=== PATIENT | male | born 1965 | race Caucasian/White ===

== ENCOUNTER → 2016-04-20 | Outpatient (CLI) | payer OTHER ==
--- NOTE | 2016-04-21 06:21 | PAP/PSG TECHNICIAN REPORT ---
[facility] Towel Cabinet Repairer Polysomnogram Report Study name: None Report date: 04/21/2016 Study date: 04/20/2016 Referring Physician: Ramin Ivey M.D. Name: PELON MEDRANO Rufina Interpreting Physician: Alexi Ivey M.D. Date of : 1965 Towel Cabinet Repairer: GENET Mayo. Sex: Male Age: 51 StudyType: PSG Weight: 251 lbs Height: 51 years, Height 6' 1" Neck Circum:17.25 inches BMI: 33.11 Medications: Patient History 50 yr. old male here for a diagnostic sleep study with [id number]. Patient was diagnosed with CHANG in 2010with an AHI at that time of 6.7. He could not get used to CPAP. Patient had a Inconclusive HST, and is now here for a new baseline. Patient complains of snoring, witnessed apneas, insomnia and hypersomnia. [place] sleepiness scale score is 8/24. Parameters Monitored NPSG: E1-M2, E2-M1, Fp1-M2, Fp2-M1, F3-M2, F4-M2, F4-M1, C3-M2, C4-M2, C4-M1, O1-M2, O2-M2, O2-M1, T3-M2, T4-M1, P3-M2, P4-M1, CHIN1, CHIN2, HR, EKG, Legs, PFLOW, SNOR, FLOW, CFLOW, Tidal Volume, THOR, ABDO, SpO2, PLTH, CPRESS, ETCO2 Wave, ETCO2, pH Sleep Architecture Sleep Stages Time at Lights Off 8:33:20 PM STAGES Time (min.) TST (%) Time at Lights On 5:45:50 AM Wake 76.0 -- Total Recording Time (TRT) 552.50 min. N1 26.0 5 Total Sleep Period (TSP) 501.5 min. N2 290.5 61 Total Sleep Time (TST) 476.5min. N3 53.5 11 Awake Time 76.0 min. REM 106.5 22 Wake after Sleep Onset 30.5 min. Sleep Efficiency (SE) 86 % Sleep Onset Latency (JEN) 45.5 min. Number of Stage 1 Shifts None Awakenings 17 Stage Changes 81 Number of REM periods 6 REM 106.5 22 REM Latency 60.0 min. NREM 370.0 78 Body Position Analysis Supine Right Left Side Prone Vertical Total Sleep Time (min.) 45.4 285.0 191.2 476.20 0.0 0.0 Total Sleep Time (%) 0% 60% 40% 100 0% N/A% Total Sleep Time REM (min.) 0.0 56.5 50.0 None 0.0 0.0 Total Sleep Time NREM (min.) 0.3 228.5 141.2 None 0.0 0.0 Intermittent Wake (min.) 45.1 17.8 13.0 None 0.0 0.0 Total Sleep Period (%) 0% None None None None None Arousals Myoclonus (PLM) * Events Count Index Events Count Index Spontaneous 3 0 Events Awake (PLMW) 109 86.1 Respiratory 0 0.0 Events Asleep w/ Arousal (PLMA) 18 2.3 PLM 18 2 Events Asleep w/o Arousal (PLMS) 162 20.4 Snoring 9 1 Total Asleep 180 22.7 Total 30 4 Total 289 31 Respiratory Analysis * CA OA MA CH H RERA Total Count 0 0 0 0 10 0 10 Index 0.0 0.0 0.0 0 1.3 0 1.3 Mean Duration 0.0 0.0 0.0 0.00 27.7 0.0 27.7 Longest Duration 0.0 0.0 0.0 0.00 0.0 0.0 39.8 Respiratory Event Summary Total Supine ~Supine Right Left Prone REM NREM Apneas Count 0 0 0 0 0 N/A 0 0 Index 0.0 0 0 0.0 0.0 N/A 0 0 Hypopneas (4% Desat) Count 10 0 10 5 5 N/A 3 7 Index 1.3 0.0 1 1.1 1.6 N/A 1.7 1.1 Apneas & All Hypopneas Count 10 0 10 5 5 N/A 3 7 Index 1.3 0 1 1 2 N/A 1.7 1.1 Respiratory Events (Diet Clerk+All Hyp+RERA) Count 10 0 10 5 5 N/A 3 7 Index 1.3 0 1 1.1 1.6 N/A 1.7 1.1 Respiratory Related Arousal Count 0 0 0 0 0 N/A 0 0 Index 0.0 0 0 0 0 N/A 0 0 Snoring Analysis Supine Right Left Prone REM NREM Total Snore duration 11.8 min Snores count 0 568 23 N/A 52 539 591 Snore mean duration 1.2 Sec Snores index 0 120 7 N/A 29.3 87.4 74.4 TST with snoring (%) 2.5% SpO2 Analysis Total REM NREM Awake <50% 0.0 min. 0.0 min. 0.0 min. 0.0 min. 51 - 60% 0.0 min. 0.0 min. 0.0 min. 0.0 min. 61 - 70% 0.0 min. 0.0 min. 0.0 min. 0.0 min. 71 - 80% 0.0 min. 0.0 min. 0.0 min. 0.0 min. 81 - 90% 44.1 min. 10.8 min. 31.7 min. 1.6 min. 91 - 100% 491.0 min. 95.7 min. 329.7 min. 65.6 min. Average 92 92 92 93 Minimum SpO2 84 87 84 84 Desaturation Event Index 2.1 2.8 2.1 0.8 # Desat. Events below 89% 7 2 5 N/A Time(%) with Saturation below 89% 0.6 0.1 0.5 0.0 Time(min.) with Saturation below 89% 3.5 0.8 2.5 0.2 Heart Rate Analysis End Tidal CO2 Analysis Min (bpm) Max (bpm) Average (bpm) TSP (mins) % of TSP Awake 47 127 60 Above 55 mmHg 0.0 0.0 NREM 48 127 56 50-55 mmHg 0.0 0.0 REM 49 93 60 45-50 mmHg 0.2 0.0 Overall 48 127 57 40-45 mmHg 231.7 48.6 35-40 mmHg 242.2 50.8 30-35 mmHg 2.3 0.5 Average ETCO2 0.1 Supplemental O2 Values Minimum O2 level: None Value Start Time End Time Towel Cabinet Repairer Comments Mr. Medrano slept in the right, and left positions. No cardiac arrhythmia. PLMs noted. No bruxism noted. Snoring was noted and scored as a 3 on a scale of 0 through 5. (0=no snoring, 5=snoring loud enough to be heard through a closed door or down the [address]) Mr. Medrano awoke to use the restroom once during the night. Mr. Medrano stated, that was a normal night, I was up a lot, and I did not dream. The final report will be interpreted and signed by a sleep physician. The completed physician report will then be placed in the patient medical record. Therapy (cm H2O) 0 TIB (min.) 552.5 TST (min.) 476.5 Sleep Onset (min.) 45.5 REM Onset From Sleep (min.) 60.0 Sleep Efficiency % 86 Wakefulness (%) 14 Wakefulness (min.) 76.0 NREM 1 (%) 5 NREM 1 (min.) 26.0 NREM 2 (%) 61 NREM 2 (min.) 290.5 NREM 3 (%) 11 NREM 3 (min.) 53.5 REM (%) 22 REM (min.) 106.5 # Arousals 30 Arousal Index 4 # Snore 591 Snore Index 74.4 AHI 1.3 AHI Supine 0 AHI Non-Supine 1 NREM AHI 1.1 REM AHI 1.7 RDI 1.3 # Obstructive Apnea 0 # Central Apnea 0 # Mixed Apnea 0 # Hypopneas 10 RERAs 0 Total Respiratory Events 10 Time Below SpO2 89% (min.) 3.3 Mean NREM SpO2 (%) 92 Mean REM SpO2 (%) 92 Mean Sleep SpO2 (%) 92 Min NREM SpO2 (%) 84 Min REM SpO2 (%) 87 Position Supine (min.) 45.4 Position Non-supine (min.) 476.2 LM Index Sleep 22.7 LM Index NREM 24.6 LM Index REM 15.8 Mean Heart Rate (bpm) 57 Min Heart Rate (bpm) 48
--- NOTE | 2016-04-25 13:53 | POLYSOMNOGRAPH REPORT ---
REFERRING PERSON: Dr. Cheryl Ivey. SEAT TRIMMER: Merline Hill. Mr. Beyer is a 51-year-old male who was diagnosed with obstructive sleep apnea in 2010. His AHI at that time was 6.7. He did not wish to treat his apnea at that time. Recently, he had an inconclusive home sleep test and is now sent to the sleep lab for a new baseline sleep study. He complains of snoring, witnessed apneas, insomnia and hypersomnia. His [place] sleepiness scale score on the evening of this study is 8. BMI is 33.11. Following the technical and digital specifications of the [employer] ([employer]ASM) a standard diagnostic polysomnogram was performed monitoring EEG, EOG, EMG (chin and leg deviations), oxygen saturation, body position, digital video, respiratory effort and airflow. The sleep Stage and event scoring was based on the AASM Manual for the Scoring of Sleep and Associated Events 2007 edition. Apneas are defined as a drop in the peak thermal sensor excursion by >90% of baseline for at least 10 seconds. Hypopneas were scored using the 4% oxygen desaturation rule (4A-[employer]) and a decrease in the nasal pressure excursions by >30% of baseline for at least 10 seconds. Respiratory effort-related arousal (RERA's) is defined as a sequence of breaths lasting at least 10 seconds characterized by increasing respiratory effort or flattening of the nasal pressure waveform leading to an arousal from sleep when the sequence of breaths does not meet criteria for an apnea or hypopnea. Apnea Hypopnea index (AHI) is defined as the number of apneas and hypopneas occurring in an hour of sleep. Respiratory disturbance index (RDI) is defined as the number of apneas, hypopneas, and RERA's occurring in an hour of sleep. Mr. Beyer's total sleep period time was 501.5 minutes. Total sleep time was 476.5 minutes. Sleep efficiency was 86%. Latency to sleep onset was 45.5 minutes with wake after sleep onset of 30.5 minutes. Total non-REM sleep time was 370 minutes. He spent 5% of that time in N1 sleep, 61% in N2 sleep and 11% in N3 sleep. REM latency was 60 minutes. Total REM sleep time was 106.5 minutes or 22% of total sleep time. There were 30 cortical arousals from sleep. Nine of these arousals were due to snoring, 18 due to periodic limb movements of sleep and 3 were spontaneous. There were 180 periodic limb movements noted on this test. Limb movement index was 22.7, however, limb movement with arousal index was normal at 2.3. There were no central obstructive or mixed apneas on this test. There were 10 hypopneas and no RERA. Apnea-hypopnea index was normal at 1.3. There were 591 snoring events recorded. Total sleep time with snoring was 2.5%. Mean saturation was 92% with desaturations to 84%; however, saturations were only less than 89% for 3.5 minutes of total recording time. There was no cardiac ectopy noted on this study. Mr. Beyer's heart rate ranged from a low of 48 beats per minute to a high of 127 beats per minute during sleep. End tidal CO2 was recorded on this test. End tidal CO2s were between 40 and 45 mmHg for 48.6% of total sleep period time, between 35 and 40 mmHg for 50.8% of total sleep period time, and between 30 and 35 mmHg for 0.5% of total sleep period time. IMPRESSION AND PLAN: 51-year-old male with previous history of mild obstructive sleep apnea who no longer appears to have sleep apnea on this study. He does not have nocturnal hypoxemia, bruxism, parasomnia or clinically significant periodic limb movements of sleep.
== END | disposition home or self-care (01) ==
LOC: C.NEUR 20:00
PROVIDERS: ATTEND Family Medicine
DX: G47.33 Obstructive sleep apnea (adult) (pediatric) (principal); F51.11 Primary hypersomnia; F51.04 Psychophysiologic insomnia; R06.83 Snoring; Z87.09 Personal history of other diseases of the respiratory system